=== PATIENT | male | born 1975 | race African-American/Black ===

== ENCOUNTER 2016-10-14 17:20 | Emergency (ER) | payer MEDICARE, OTHER | END 2016-10-14 20:06 | disposition home or self-care (01) | LOC: ER 17:20 | PROC: 0HQHXZZ Repair Right Upper Leg Skin, External Approach (ICD-10-PCS; principal; 2016-10-14) | DX: S71.111A Laceration without foreign body, right thigh, initial encounter (principal); F17.200 Nicotine dependence, unspecified, uncomplicated; W01.0XXA Fall on same level from slipping, tripping and stumbling without subsequent striking against object, initial encounter | CPT/HCPCS: 73552-LT; 90471; 90714; 99283; A9270-GY ==

== ENCOUNTER 2016-10-22 12:17 | Emergency (ER) | payer MEDICARE, OTHER | END 2016-10-22 12:35 | disposition home or self-care (01) | LOC: ER 12:17 | DX: S71.112D Laceration without foreign body, left thigh, subsequent encounter (principal) | CPT/HCPCS: 99281 ==